=== PATIENT | male | born 1995 | race Caucasian/White ===

== ENCOUNTER 2017-12-18 08:24 | Emergency (ER) | payer BC, MEDICAID ==
[2017-12-18 09:21] VITALS: BP 125/76
[2017-12-18] MEDS ORDERED: predniSONE TAB* 20 MG PO ONE (09:42)
[2017-12-18] MEDS ORDERED: Albuterol HFA INHALER* 8 gm MDI INH ONE (09:43)
--- NOTE | 2017-12-18 09:47 | UC ---
Throat Pain/Nasal Thomas HPI - HPI Summary HPI Summary: 22 yo male with sore throat x 1 week cough hoarseness feverish chest tight - History of Current Complaint Chief Complaint: UCRespiratory Stated Complaint: SORE THROAT Time Seen by Provider: 12/18/17 09:36 Hx Obtained From: Patient Onset/Duration: Gradual Onset, Lasting Days Severity: Severe Pain Intensity: 10 Pain Scale Used: 0-10 Numeric Cough: Productive Associated Signs & Symptoms: Positive: Sinus Discomfort, Nasal Discharge - Epiglottits Risk Factors Epiglottis Risk Factors: Negative - Allergies/Home Medications Allergies/Adverse Reactions: Allergies Allergy/AdvReac Type Severity Reaction Status Date / Time No Known Allergies Allergy Verified 12/18/17 09:13 Home Medications: Home Medications Omeprazole CAP* [Prilosec CAP* 20 MG] 40 mg PO DAILY 12/18/17 [History Confirmed 12/18/17] PMH/Surg Hx/FS Hx/Imm Hx Previously Healthy: Yes Other History Of: Negative For: Anticoagulant Therapy - Surgical History Surgical History: Yes Surgery Procedure, Year, and Place: [id number] - Family History Known Family History: Positive: Cardiac Disease, Diabetes, Other - [place] - Social History Alcohol Use: Rare Substance Use Type: None Smoking Status (MU): Heavy Every Day Tobacco Smoker Type: Cigarettes, Smokeless Tobacco Amount Used/How Often: 1/2 csan daily Review of Systems Constitutional: Negative Skin: Negative Eyes: Negative ENT: Sore Throat, Nasal Discharge, Sinus Congestion Respiratory: Cough Cardiovascular: Negative Gastrointestinal: Negative Genitourinary: Negative Motor: Negative Neurovascular: Negative Musculoskeletal: Negative Neurological: Negative Psychological: Negative Is Patient Immunocompromised?: No All Other Systems Reviewed And Are Negative: Yes Physical Exam Triage Information Reviewed: Yes Appearance: Well-Appearing, No Pain Distress, Well-Nourished Vital Signs: Initial Vital Signs Temp 98.7 F 12/18/17 09:15 Pulse 81 12/18/17 09:15 Resp 16 12/18/17 09:15 BP 125/76 12/18/17 09:15 Pulse Ox 99 12/18/17 09:15 Vital Signs Reviewed: Yes Eye Exam: Normal Eyes: Positive: Conjunctiva Clear ENT: Positive: Hearing grossly normal, Pharyngeal erythema, TMs normal, Hoarse voice, Dental tenderness, Uvula midline. Negative: Trismus, Muffled voice Neck: Positive: Supple, Nontender, Enlarged Nodes @ - ant cervical Respiratory: Positive: No respiratory distress, No accessory muscle use, Wheezing - with forced expiration Cardiovascular: Positive: RRR, No Murmur Musculoskeletal: Positive: ROM Intact, No Edema Neurological: Positive: Alert Psychological Exam: Normal Skin Exam: Normal Diagnostics - Laboratory Diagnostic Studies Completed/Ordered: strep (-) Throat Pain/Nasal Course/Dx - Differential Dx/Diagnosis Provider Diagnoses: acute pharngitis. acute bronchitis Discharge - Sign-Out/Discharge Documenting (check all that apply): Discharge - Discharge Plan Condition: Stable Disposition: HOME Prescriptions: Amoxicillin PO (*) [Amoxicillin 875 MG (*)] 875 mg PO BID #14 tab predniSONE [Deltasone] 40 mg PO DAILY #10 tab Patient Education Materials: Pharyngitis (ED), Acute Bronchitis (ED) Forms: *Work Release Referrals: César Sin MD [Primary Care Provider] - 3 Days (if not better) Additional Instructions: use inhaler as directed recheck for new or worsening symptoms - Billing Disposition and Condition Condition: STABLE Disposition: HOME
== END 2017-12-18 09:55 | disposition home or self-care (01) ==
LOC: UCCORT 08:24
DX: J02.9 Acute pharyngitis, unspecified (principal); J20.9 Acute bronchitis, unspecified; F17.290 Nicotine dependence, other tobacco product, uncomplicated
CPT/HCPCS: 87651; 99213; A9270-GY; G0463; J7512

== ENCOUNTER 2018-01-19 15:50 | Emergency (ER) | payer BC ==
--- NOTE | 2018-01-19 16:01 | UC ---
Throat Pain/Nasal Thomas HPI - HPI Summary HPI Summary: 22 y/o male presents to the urgent care c/o sore throat and left swollen tonsil for the past 5 days. Pt states difficulty swallowing is 9/10 radiating to his left jaw. Pt also states left side of his neck w/ a swollen left lymph node. Pt has taken 3 tabs Po of Amoxicillin he had left form a previous treatment for bronchitis. Pt has had fever and chills since yesterday. He took Ibuprofen 800mg PO about 3hrs ago. Pt denies SOB, chest pain, difficulty breathing, trismus, abdominal pain, N/V/D. Pt is UTD w/ all vaccines. - History of Current Complaint Stated Complaint: SWOLLEN/PAINFUL TONSIL AREA Time Seen by Provider: 01/19/18 15:59 Hx Obtained From: Patient Onset/Duration: Gradual Onset, Lasting Days - 5 days, Still Present, Worse Since - yesterday Severity: Severe Pain Intensity: 9 Pain Scale Used: 0-10 Numeric Associated Signs & Symptoms: Positive: Dysphagia - Epiglottits Risk Factors Epiglottis Risk Factors: Negative - Allergies/Home Medications Allergies/Adverse Reactions: Allergies Allergy/AdvReac Type Severity Reaction Status Date / Time No Known Allergies Allergy Verified 01/19/18 16:00 PMH/Surg Hx/FS Hx/Imm Hx Previously Healthy: Yes - Pt denies PMHX Other History Of: Negative For: Anticoagulant Therapy - Surgical History Surgical History: Yes Surgery Procedure, Year, and Place: [id number] - Family History Known Family History: Positive: Cardiac Disease, Diabetes Family History: [place] - Social History Occupation: Employed Full-time Lives: With Family Alcohol Use: Rare Substance Use Type: None Smoking Status (MU): Heavy Every Day Tobacco Smoker Type: Cigarettes, Smokeless Tobacco Amount Used/How Often: 1/2 csan daily - Immunization History Vaccination Up to Date: Yes Review of Systems Constitutional: Negative Skin: Negative Eyes: Negative ENT: Sore Throat - w/ difficulty swallowing, Other - left side swollen tonsil w / redness Respiratory: Negative Cardiovascular: Negative Gastrointestinal: Negative Genitourinary: Negative Motor: Negative Neurovascular: Negative Musculoskeletal: Negative Neurological: Headache Psychological: Negative Is Patient Immunocompromised?: No All Other Systems Reviewed And Are Negative: Yes Physical Exam - Summary Physical Exam Summary: VITAL SIGNS: Reviewed. GENERAL: Patient is a well developed and nourished male adolescent who is sitting comfortable in the examining table. Patient is not in any acute respiratory distress. HEAD AND FACE: No signs of trauma. No ecchymosis, hematomas or skull depressions. No sinus tenderness. EYES: PERRLA, EOMI x 2, No injected conjunctiva, no nystagmus. No photophobia. EARS: Hearing grossly intact. Ear canals and tympanic membranes are within normal limits. MOUTH: Positive pharynx with erythema LF>RT, mild exudates, left palate w/ erythema and swelling. L tonsillar enlargement with no exudate. Uvula deviated to the left side. NECK: Supple, trachea is midline, Positive anterior cervical lymphadenopathy LF> RT, no JVD, no carotid bruit, no c-spine tenderness, neck with full ROM. No meningeal signs, no Kernig's or brudzinskis signs. CHEST: Symmetric, no tenderness at palpation LUNGS: Clear to auscultation bilaterally. No wheezing or crackles. CVS: Regular rate and rhythm, S1 and S2 present, no murmurs or gallops appreciated. ABDOMEN: Soft, non-tender. No signs of distention. No rebound no guarding, and no masses palpated. Bowel sounds are normal. EXTREMITIES: FROM in all major joints, no edema, no cyanosis or clubbing. NEURO: Alert and oriented x 3. No acute neurological deficits. Speech is normal and follows commands. SKIN: Dry and warm Triage Information Reviewed: Yes Throat Pain/Nasal Course/Dx - Course Course Of Treatment: 22 y/o male presents to the urgent care c/o sore throat and left swollen tonsil for the past 5 days. Pt states difficulty swallowing is 9/10 radiating to his left jaw. Pt also states left side of his neck w/ a swollen left lymph node. Pt has taken 3 tabs PO of Amoxicillin he had left form a previous treatment for bronchitis. Pt has had fever and chills since yesterday. He took Ibuprofen 800mg PO about 3hrs ago. Pt denies SOB, chest pain , difficulty breathing, trismus, abdominal pain, N/V/D. Pt is UTD w/ all vaccines.Hx obtained. Pt w/ left side peritonsillar abscess on examination. DR Sanford consulted on Pt's symptoms. He evaluated Pt and he agreed is a Peritonsillar abscess. He ordered IV fluids, Decadron 12mg PO and Ceftriaxone 1g to see if Pt's symptoms improved. Pt Also Rx Tylenol PO since he developed fever. Pt tolerated well medications and he felt better after about 2hrs. Dr sanford also recommended to D/C home w/ Rx Clindamycin PO and Ibuprofen PO. Pt strongly recommended to go to the ER if symptoms worsen for further treatment overnight. He was also given a referral w/ ENT Dr Leong for further evaluation and treatment 1-2 days if not improvement. Pt understood and agreed w / plan of care. Pt left the clinic ambulating and hemodynamically stable. - Differential Dx/Diagnosis Differential Diagnosis/HQI/PQRI: Laryngitis, Mononucleosis, Peritonsillar Abscess, Pharyngitis, Tonsillitis Provider Diagnoses: 1- Left side peritonsillar abscess - Physician Notification/Consults Discussed Patient Care With: Raoul Sanford - DR Sanford agreed w/ Pt's [place] of care. Discharge - Sign-Out/Discharge Documenting (check all that apply): Discharge/Admit/Transfer - discharge home - Discharge Plan Condition: Stable Disposition: HOME Prescriptions: Clindamycin Cap(NF) [Clindamycin Cap 300 mg Cap(NF)] 300 mg PO Q6H #40 cap Ibuprofen TAB* [Motrin TAB* 800 MG] 800 mg PO Q6H PRN #30 tab PRN Reason: Fever Patient Education Materials: Peritonsillar Abscess (ED) Forms: *Work Release Referrals: César Sin MD [Primary Care Provider] - 1 Day Osmany Leong MD [Medical Doctor] - 1 Day Additional Instructions: 1- Please take Chlindamycin PO loading dose tonight and then continue 1 tab PO QID x 10 days . Please take full course of antibiotic to avoid resistance. 2-Please take ibuprofen PO q6-8hrs prn as instructed after meals to alleviate pain and swelling. Increase fluid intake, eat well, rest and avoid strenuous exercise. 3- Please f/u w/ ENT DR Oquendo tomorrow for further evaluation and treatment. Please call the office and make an appt as soon as possible 4-If you continue w/ severe pain and and fever despite taking antibiotic please go immediate;y to the ER for further management. - Billing Disposition and Condition Condition: STABLE Disposition: HOME
[2018-01-19 16:11] VITALS: BP 139/74
[2018-01-19] MEDS ORDERED: NS 0.9% 1000 ML* 1,000 ML BOLUS ONE (16:48)
[2018-01-19] MEDS ORDERED: Dexamethasone IV* 12 MG in NS 0.9% 50 ML* 50 ML IVPB ONE (16:52)
[2018-01-19] MEDS ORDERED: cefTRIAXone VIAL(*) 1,000 MG in NS 0.9% 50 ML* 50 ML IVPB ONE (16:53)
[2018-01-19] MEDS ORDERED: Dexamethasone IV* 4 MG/ML 1 ML (4 MG) ONE (17:27)
[2018-01-19] MEDS ORDERED: cefTRIAXone VIAL(*) 1,000 MG VIAL ONE (17:55)
[2018-01-19] MEDS ORDERED: Acetaminophen TAB* 325 MG PO ONE (18:10)
--- NOTE | 2018-01-21 02:33 | UC ---
- Progress Note Progress Note: 01/20/2018 I contacted Pt at his home tonight around 1930PM for f/u on his symptoms. Pt stated feeling better and eating comfortably w/o any difficulty. Pt is taking Chlindamycin PO as Rx. Pt recommended if not improvement of symptoms to f/u W/ ENT DR Leong for further management. Louise Main PA-C Discharge - Sign-Out/Discharge Documenting (check all that apply): Discharge/Admit/Transfer - Discharge Plan Condition: Stable Disposition: HOME Prescriptions: Clindamycin Cap(NF) [Clindamycin Cap 300 mg Cap(NF)] 300 mg PO Q6H #40 cap Ibuprofen TAB* [Motrin TAB* 800 MG] 800 mg PO Q6H PRN #30 tab PRN Reason: Fever Patient Education Materials: Peritonsillar Abscess (ED) Forms: *Work Release Referrals: César Sin MD [Primary Care Provider] - 1 Day Osmany Leong MD [Medical Doctor] - 1 Day Additional Instructions: 1- Please take Chlindamycin PO loading dose tonight and then continue 1 tab PO QID x 10 days . Please take full course of antibiotic to avoid resistance. 2-Please take ibuprofen PO q6-8hrs prn as instructed after meals to alleviate pain and swelling. Increase fluid intake, eat well, rest and avoid strenuous exercise. 3- Please f/u w/ ENT DR Oquendo tomorrow for further evaluation and treatment. Please call the office and make an appt as soon as possible 4-If you continue w/ severe pain and and fever despite taking antibiotic please go immediate;y to the ER for further management. - Billing Disposition and Condition Condition: STABLE Disposition: HOME
== END 2018-01-19 19:11 | disposition home or self-care (01) ==
LOC: UCCORT 15:50
DX: R07.0 Pain in throat (principal); F17.210 Nicotine dependence, cigarettes, uncomplicated
CPT/HCPCS: 87651; 96361; 96365; 99212; A9270-GY; G0463; J0696; J1100